=== PATIENT | female | born 1960 | race Two or more races ===

== ENCOUNTER 2017-01-10 21:14 | Emergency (ER) | payer OTHER ==
[~2017-01-10] VITALS: Ht 162.6 cm; Wt 57.2 kg
[2017-01-10] MEDS ORDERED: URSODIOL (21:49)
[2017-01-10 23:03] LABS: BASOPHILS # (AUTO) 0.1 K/uL (0.0-8.0); BASOPHILS % (AUTO) 0.7 % (0.0-2.0); EOSINOPHILS # (AUTO) 0.1 K/uL (0.0-0.7); EOSINOPHILS % (AUTO) 0.8 % (0.0-7.0); HEMOGLOBIN 13.6 G/DL (12.0-16.0); LYMPHOCYTES # (AUTO) 2.4 K/UL (0.8-4.8); LYMPHOCYTES % (AUTO) 28.8 % (20.5-51.5); MEAN CORPUSCULAR HEMOGLOBIN 29.7 UUG (27.0-31.0); MEAN CORPUSCULAR HGB CONC 33 g/dL (32.0-37.0); MEAN CORPUSCULAR VOLUME 89.7 FL (81.0-99.0); MONOCYTES # (AUTO) 0.6 K/UL (0.1-1.30); MONOCYTES % (AUTO) 6.6 % (0.0-11.0); NEUTROPHILS # (AUTO) 5.3 K/UL (1.8-8.9); NEUTROPHILS % (AUTO) 63.1 % (38.5-71.5); PLATELET COUNT (AUTO) 322 K/UL (150-450); RED BLOOD CELL COUNT(AUTO) 4.57 MIL/UL (4.2-5.4); WHITE BLOOD COUNT (AUTO) 8.5 K/UL (4.0-11.2)
[2017-01-10 23:11] LABS: CREATININE 0.6 mg/dL (0.6-1.3); POTASSIUM 3.9 mmol/L (3.5-5.1)
[2017-01-10 23:17] LABS: BILIRUBIN,DIRECT 0.1 mg/dL (0.0-0.2); BILIRUBIN,TOTAL 0.5 mg/dL (0.2-1.0); TOTAL PROTEIN, SERUM 8.8 g/dL (6.4-8.2)
[2017-01-11 00:16] LABS: *BILIRUBIN,URIN NEGATIVE (NEGATIVE); *BLOOD, URINE Trace-intact (NEGATIVE); *CLARITY,URINE CLEAR (CLEAR); *COLOR,URINE YELLOW (YELLOW); *KETONES,URINE NEGATIVE (NEGATIVE); *PROTEIN,URINE NEGATIVE (NEGATIVE); *UROBILINOGEN,URINE 0.2 E.U./dl (NORMAL); LEUKOCYTE ESTERASE ,URINE 1+ (NEGATIVE); NITRITE, URINE NEGATIVE (NEGATIVE); PH,URINE 5.5 (5.0-8.0); UGLUCOSE NEGATIVE (NEGATIVE)
[2017-01-11 00:19] LABS: RBC,URINE 0-3 /HPF (0-3)
[2017-01-11 00:20] LABS: SQUAMOUS EPITHELIAL CELL,UR FEW /HPF (NONE SEEN)
--- NOTE | 2017-01-11 00:40 | NUR ---
Patient discharged to home in stable conditon. Written and verbal after care instructions given. Patient verbalizes understanding of instructions.
== END 2017-01-11 00:41 | disposition home or self-care (01) ==
LOC: ER 21:14
DX: R10.11 Right upper quadrant pain (principal); K59.00 Constipation, unspecified; K83.0 Cholangitis
CPT/HCPCS: 36415; 71010; 74176; 76705; 80048; 80076; 81001; 83605; 83690; 84484; 85025; 87040 ×2; 87086; 93005; 96361; 96374; 96375; 99285; A4663; J1885; J2765; J7030; 70030-TC

== ENCOUNTER 2017-03-30 12:34 | Emergency (ER) | payer OTHER ==
[~2017-03-30] VITALS: Ht 152.4 cm; Wt 47.6 kg
[~2017-03-30 12:34] MED LIST: URSODIOL
--- NOTE | 2017-03-30 13:00 | NUR ---
MSE DONE BY DR FERNANDEZ IN ROOM 03A. PATIENT A & O 3X.
--- NOTE | 2017-03-30 14:37 | NUR ---
Patient discharged to home in stable conditon. Written and verbal after care instructions given to patient. Patient verbalizes understanding of instructions.
== END 2017-03-30 14:37 | disposition home or self-care (01) ==
LOC: ER 12:34
DX: M54.30 Sciatica, unspecified side (principal); K83.0 Cholangitis; M51.36 Other intervertebral disc degeneration, lumbar region
CPT/HCPCS: 72131; A4663

== ENCOUNTER 2017-05-07 07:00 | Emergency (ER) | payer OTHER ==
[~2017-05-07] VITALS: Ht 165.1 cm; Wt 54.4 kg
--- NOTE | 2017-05-07 07:36 | NUR ---
PT COMPLAINS OF ITCHING AND DIFFICULTY SLEEPING. NO DIFFICULTIES BREATHING OR SWALLOWING REPORTED. PT A&OX4. PT IN ROOM. AWAITING MD CONSULT.
[2017-05-07] MEDS ORDERED: LORATADINE 10 MG TABLET PO STA (08:21)
[2017-05-07] MEDS ORDERED: predniSONE 50 MG TABLET PO ONE (08:30)
--- NOTE | 2017-05-07 08:32 | NUR ---
PER ER MD SHAFFER, PT STABLE FOR DISCHARGE HOME. PT A&OX4. PT ABLE TO AMBULATE UNASSISTED W/ STEADY GAIT. PT INSTRUCTED TO FOLLOW UP AT [facility] ON THURSDAY, MAY 11, 2017 BY MD SHAFFER. RX GIVEN TO PT. PT VERBALIZED UNDERSTANDING OF INSTRUCTIONS.
[2017-05-07 08:33] VITALS: BP 110/63
[2017-05-07] MEDS ORDERED: predniSONE 50 MG TABLET ONE (08:46)
[2017-05-07] MEDS ORDERED: LORATADINE 10 MG TABLET ONE (08:46)
== END 2017-05-07 08:32 | disposition home or self-care (01) ==
LOC: ER 07:01
DX: L29.9 Pruritus, unspecified (principal); K83.0 Cholangitis
CPT/HCPCS: A4663; J7512

== ENCOUNTER 2017-05-11 12:47 | Emergency (ER) | payer OTHER | END 2017-05-13 19:44 | disposition left against medical advice (07) | LOC: ER 12:47 | DX: Z53.21 Procedure and treatment not carried out due to patient leaving prior to being seen by health care provider (principal) ==

== ENCOUNTER 2017-06-26 19:03 | Emergency (ER) | payer OTHER ==
[~2017-06-26] VITALS: Ht 165.1 cm; Wt 54.4 kg
[2017-06-26 20:24] LABS: BASOPHILS % (AUTO) 0.6 % (0.0-2.0); EOSINOPHILS # (AUTO) 0.1 K/uL (0.0-0.7); EOSINOPHILS % (AUTO) 1.9 % (0.0-7.0); HEMATOCRIT 38.3 % (31.2-41.9); LYMPHOCYTES # (AUTO) 2.3 K/uL (20.0-40.0); LYMPHOCYTES % (AUTO) 29.6 % (20.5-51.5); MEAN CORPUSCULAR HGB CONC 34 g/dL (32.3-35.6); MEAN CORPUSCULAR VOLUME 91.6 fL (75.5-95.3); MONOCYTES # (AUTO) 0.8 K/uL (2.0-10.0); MONOCYTES % (AUTO) 10.6 % (0.0-11.0); NEUTROPHILS # (AUTO) 4.4 K/uL (1.8-8.9); NEUTROPHILS % (AUTO) 57.3 % (38.5-71.5); PLATELET COUNT (AUTO) 269 K/uL (179-408); RED BLOOD CELL COUNT(AUTO) 4.18 MIL/uL (3.63-4.92); WHITE BLOOD COUNT (AUTO) 7.7 K/uL (3.8-11.8)
[2017-06-26 20:26] LABS: CREATININE 0.6 mg/dL (0.6-1.3); POTASSIUM 3.7 mmol/L (3.5-5.1)
[2017-06-26 22:30] LABS: BILIRUBIN,DIRECT 0.2 mg/dL (0.0-0.2); BILIRUBIN,TOTAL 0.4 mg/dL (0.2-1.0); TOTAL PROTEIN, SERUM 8.6 g/dL (6.4-8.2)
--- NOTE | 2017-06-27 00:33 | NUR ---
Patient discharged to home in stable conditon. Written and verbal after care instructions given. Patient verbalizes understanding of instructions. Peripheral IV was removed. Patient able to ambulate unassisted with steady gait. Patient left with all personal belongings.
[2017-06-27 00:36] VITALS: BP 137/84
== END 2017-06-27 00:30 | disposition home or self-care (01) ==
LOC: ER 19:08
DX: R07.89 Other chest pain (principal); R78.89 Finding of other specified substances, not normally found in blood
CPT/HCPCS: 36415; 70030-TC; 71045; 85025; 85730; 93005; A4663; J7030

== ENCOUNTER 2019-04-23 22:59 | Emergency (ER) | payer OTHER ==
[~2019-04-23] VITALS: Ht 165.1 cm; Wt 62.6 kg
--- NOTE | 2019-04-23 23:12 | NUR ---
Dr. Coombs at bedside for MSE.
[2019-04-23] MEDS ORDERED: ASPIRIN 325 MG TABLET PO ONE (23:15)
[2019-04-23] MEDS ORDERED: IV NORMAL SALINE 500 ML BAG IV ONE (23:15)
[2019-04-23] MEDS ORDERED: NITROGLYCERIN 0.4 MG/TAB BOTTLE SL ONE ×2 (23:15→23:19)
[2019-04-23] MEDS ORDERED: ASPIRIN 325 MG TABLET ONE (23:19)
--- NOTE | 2019-04-23 23:24 | NUR ---
Xray at bedside.
--- NOTE | 2019-04-23 23:28 | NUR ---
Pt still has chestpain, given 2nd dose of nitroglycerin.
--- NOTE | 2019-04-23 23:34 | NUR ---
Pt states chest pain is gone but has headache and pain bilat low ext.
[2019-04-23 23:52] LABS: BILIRUBIN,DIRECT 0.1 mg/dL (0.0-0.2); BILIRUBIN,TOTAL 0.3 mg/dL (0.2-1.0); CREATININE 0.8 mg/dL (0.6-1.3); POTASSIUM 3.6 mmol/L (3.5-5.1)
[2019-04-23 23:53] LABS: TOTAL PROTEIN, SERUM 8.3 g/dL (6.4-8.2)
[2019-04-24 00:10] LABS: BASOPHILS # (AUTO) 0.1 K/uL (0.0-8.0); BASOPHILS % (AUTO) 0.7 % (0.0-2.0); EOSINOPHILS # (AUTO) 0.2 K/uL (0.0-0.7); HEMATOCRIT 39.3 % (31.2-41.9); HEMOGLOBIN 13.1 g/dL (10.9-14.3); LYMPHOCYTES # (AUTO) 3.9 K/uL (20.0-40.0); LYMPHOCYTES % (AUTO) 43.2 % (20.5-51.5); MEAN CORPUSCULAR HEMOGLOBIN 30.5 uug (24.7-32.8); MEAN CORPUSCULAR HGB CONC 33 g/dL (32.3-35.6); MEAN CORPUSCULAR VOLUME 91.7 fL (75.5-95.3); MONOCYTES # (AUTO) 0.9 K/uL (2.0-10.0); MONOCYTES % (AUTO) 10.6 % (0.0-11.0); NEUTROPHILS # (AUTO) 3.9 K/uL (1.8-8.9); NEUTROPHILS % (AUTO) 43.5 % (38.5-71.5); PLATELET COUNT (AUTO) 325 K/uL (179-408); RED BLOOD CELL COUNT(AUTO) 4.28 MIL/uL (3.63-4.92)
--- NOTE | 2019-04-24 00:31 | NUR ---
Pt out of ER for CT.
--- NOTE | 2019-04-24 00:48 | NUR ---
Pt back to ER from CT.
--- NOTE | 2019-04-24 01:27 | NUR ---
Patient does not wish to proceed with medical care recommended by Dr. Coombs. Patient given information related to possible complications, up to and including , which could occur as a result of leaving the hospital at this time. Patient verbalizes understanding of risks involved due to leaving against medical advice. Patient has signed AMA form. VSS, no acute signs of distress, all belongings taken.
[2019-04-24 01:38] VITALS: BP 129/70
== END 2019-04-24 01:39 | disposition left against medical advice (07) ==
LOC: ER 23:06
DX: R07.89 Other chest pain (principal); Z79.899 Other long term (current) drug therapy
CPT/HCPCS: 36415; 70030-TC; 71045; 71250; 85025; 85730; 93005; A4663; J7040